=== PATIENT | male | born 1985 | race Two or more races ===

== ENCOUNTER 2020-10-08 05:21 | Emergency (ER) | payer OTHER ==
[~2020-10-08] VITALS: Ht 175.3 cm; Wt 79.4 kg
[2020-10-08 05:21] VITALS: BP 148/94
[2020-10-08] MEDS ORDERED: NALOXONE HCL 0.4 MG/ML VIAL ONE (05:23)
[2020-10-08] MEDS ORDERED: SODIUM CHLORIDE 0.9% 1,000 ML IV ONE (05:30)
== END 2020-10-08 09:34 | disposition left against medical advice (07) ==
LOC: EDBD 05:21 → ER 05:21
DX: T50.901A Poisoning by unspecified drugs, medicaments and biological substances, accidental (unintentional), initial encounter (principal); R06.03 Acute respiratory distress; Y92.89 Other specified places as the place of occurrence of the external cause
CPT/HCPCS: 93005; 99283; J2310